=== PATIENT | female | born 1955 | race Caucasian/White ===

== ENCOUNTER → 2024-07-05 07:07 | Outpatient (REF) | payer BC, SELFPAY | LOC: RCS 07:07 | PROVIDERS: ATTENDING PHYSICIAN Internal Medicine | DX: R00.2 Palpitations (principal) | CPT/HCPCS: 73140; 93306 ==

== ENCOUNTER → 2024-10-11 09:23 | Outpatient (REF) | payer BC, SELFPAY | LOC: MRI 3T 09:23 | PROVIDERS: ATTENDING PHYSICIAN Orthopaedic Surgery; FAMILY PHYSICIAN Internal Medicine | DX: M25.562 Pain in left knee (principal) | CPT/HCPCS: 73721 ==

== ENCOUNTER → 2025-01-21 06:51 | Outpatient (REF) | payer BC, SELFPAY | LOC: RAD 06:51 | PROVIDERS: ATTENDING PHYSICIAN Internal Medicine | DX: M79.622 Pain in left upper arm (principal); M79.89 Other specified soft tissue disorders | CPT/HCPCS: 93931 ==